=== PATIENT | female | born 1990 | race Hispanic/Latino ===

== ENCOUNTER 2020-05-05 03:59 | Inpatient (IN) | payer BC ==
[2020-05-05 04:44] VITALS: BMI 26.2
[2020-05-05] MEDS ORDERED: hydrALAZINE 20 MG/ML VIAL ONE (05:28)
[2020-05-05] MEDS: Lactated Ringer's 1,000 ML IV SCH (05:30)
[2020-05-05] MEDS ORDERED: Acetaminophen 500 MG TAB PO PRN (06:05)
[2020-05-05] MEDS ORDERED: Misoprostol 200 MCG TAB PR PRN (06:05)
[2020-05-05] MEDS ORDERED: Ibuprofen 800 MG TAB PO PRN (06:05)
[2020-05-05] MEDS ORDERED: Methylergonovine 0.2 MG/ML VIAL IM PRN (06:05)
[2020-05-05] MEDS ORDERED: Promethazine HCl 25 MG/ML VIAL IM PRN ×2 (06:05→11:23)
[2020-05-05] MEDS ORDERED: Butorphanol Tartrate 1 MG/ML VIAL SLOW IVP PRN (06:05)
[2020-05-05] MEDS ORDERED: Ondansetron PF 4 MG/2 ML Vial IVP PRN ×2 (06:05→11:23)
[2020-05-05] MEDS ORDERED: hydrALAZINE 20 MG/ML VIAL SLOW IVP PRN (06:05)
[2020-05-05] MEDS ORDERED: Lidocaine 1% (PF) 30 ML VIAL SC PRN (06:05)
[2020-05-05] MEDS ORDERED: Fentanyl 4 mcg/Bup 0.1% Cadd 100 ML ONE (07:00)
[2020-05-05 07:09] LABS: ALT (SGPT) 14 U/L (8-55); AST (SGOT) 23 U/L (5-34); Albumin 3.6 g/dL (3.5-5.0); Alkaline Phosphatase 118 U/L (40-110); Anion Gap 16 mmol/L (10-20); BUN (Urea Nitrogen) 11 mg/dL (7.0-18.7); Bilirubin, Total 0.3 mg/dL (0.2-1.2); Calc. Creatinine Clearance 143 mL/min (70-130); Calcium 9.1 mg/dL (7.8-10.44); Carbon Dioxide 20 mmol/L (22-29); Chloride 107 mmol/L (98-107); Globulin 2.9 g/dL (2.4-3.5); Glucose 78 mg/dL (70-105); Potassium 4.4 mmol/L (3.5-5.1); Protein, Total 6.5 g/dL (6.0-8.3); Sodium 139 mmol/L (136-145)
[2020-05-05 07:15] LABS: #Eosinphils 0.1 10x3/uL (0.0-0.5); #Monocytes 1.1 10x3/uL (0.0-1.1); #Neutrophils 9.6 10x3/uL (1.5-8.4); %Basophils 0.2 % (0.0-2.0); %Eosinophils 0.4 % (0.0-6.0); %Lymphocytes 14.1 % (18.0-47.0); %Monocytes 8.4 % (0.0-10.0); %Neutrophils 76.4 % (40.0-75.0); Hemoglobin 10.6 g/dL (12.0-15.5); Mean Corpuscular HGB CONC 32.2 g/dL (32.0-36.0); Mean Corpuscular Hemoglobin 26.8 pg (27.0-33.0); Mean Corpuscular Volume 83.3 fl (81.6-98.3); Platelet Count 132 10x3/uL (150-450); RBC Distribution Width 14.5 % (11.5-14.5); Red Blood Cell (RBC) Count 3.95 10x6/uL (3.90-5.03); White Blood Cell (WBC) Count 12.6 10x3/uL (3.5-10.5)
[2020-05-05 07:28] LABS: Syphilis Antibody Nonreactive (Nonreactive); Syphilis Antibody Index 0.04 S/CO (<1.00 Non-Reactive)
[2020-05-05 07:30] LABS: Hep B Surf Ag Non-Reactive S/CO (NonReactive)
[2020-05-05 07:59] LABS: HBSAg Index 0.15 S/CO (0-0.99)
[2020-05-05] MEDS ORDERED: Naloxone HCl 0.4 mg/ml Vial IVP PRN ×2 (11:23)
[2020-05-05] MEDS ORDERED: Lactated Ringer's 500 ML IV PRN (11:23)
[2020-05-05] MEDS ORDERED: diphenhydrAMINE 50 MG/ML VIAL IVP PRN (11:23)
[2020-05-05] MEDS ORDERED: Acetaminophen 325 MG TAB PO PRN (11:23)
[2020-05-05] MEDS ORDERED: Communication Order-Pharmacy FS SCH (11:30)
[2020-05-05] MEDS ORDERED: Fentanyl 4 mcg/Bupivacaine 0.1% Cassette 100 ML EPIDURAL SCH (11:30)
[2020-05-05] MEDS: NS w/ Oxytocin 30 units 500 ML IV PRN ×2 (11:37→12:25)
[2020-05-05] MEDS ORDERED: ePHEDrine Sulfate 50 MG/10 ML VIAL SLOW IVP PRN (12:20)
[2020-05-05] MEDS ORDERED: Bisacodyl 10 MG SUPP PR PRN (15:00)
[2020-05-05] MEDS ORDERED: Preparation H Ointment 28 GM TUBE PR PRN (15:00)
[2020-05-05] MEDS ORDERED: NS / Oxytocin 40 units/1000ml 1,000 ML IV SCH (15:00)
[2020-05-05] MEDS ORDERED: Benzocaine-Menthol 82.5 ML CAN TOP PRN (15:00)
[2020-05-05] MEDS ORDERED: Milk Of Magnesia 30 ML UDCUP PO PRN (15:00)
[2020-05-05] MEDS ORDERED: Lanolin Ointment 7 GM TUBE TOP PRN (15:00)
[2020-05-05] MEDS ORDERED: diphenhydrAMINE 25 MG CAP PO PRN (15:00)
[2020-05-05] MEDS: Ibuprofen 800 MG TAB PO SCH ×2 (17:04→22:53)
[2020-05-05 17:12] LABS: SARS-CoV-2 PCR by NAA Not Detected (NotDetected)
[2020-05-05] MEDS: Docusate Calcium (SURFAK) 240 MG CAP PO SCH (22:54)
[2020-05-06] MEDS: Ibuprofen 800 MG TAB PO SCH ×3 (06:42→22:03)
[2020-05-06] MEDS: Prenatal Vitamin 1 TAB PO SCH (09:29)
[2020-05-06] MEDS: Docusate Calcium (SURFAK) 240 MG CAP PO SCH ×2 (09:29→22:05)
[2020-05-06] MEDS: Ferrous Sulfate 325 MG TAB PO SCH ×2 (09:35→17:33)
[2020-05-06] MEDS ORDERED: Bupivacaine 0.25% HCL 30 ML VIAL ONE (19:18)
[2020-05-07] MEDS: Ibuprofen 800 MG TAB PO SCH (05:46)
[2020-05-07] MEDS: Lactated Ringer's 1,000 ML IV SCH (07:36)
[2020-05-07 08:09] VITALS: BP 118/61; TEMP 98.2
[2020-05-07] MEDS: Ferrous Sulfate 325 MG TAB PO SCH (08:14)
[2020-05-07] MEDS: Docusate Calcium (SURFAK) 240 MG CAP PO SCH (09:14)
[2020-05-07] MEDS: Prenatal Vitamin 1 TAB PO SCH (09:14)
== END 2020-05-07 11:34 | disposition home or self-care (01) | DRG 807 ==
LOC: CSHLD/OP 03:59 → CSHLD 06:18 → CSHPP 18:13
PROVIDERS: ADMIT Obstetrics & Gynecology; ATTEND Obstetrics & Gynecology
PROC: 0KQM0ZZ Repair Perineum Muscle, Open Approach (ICD-10-PCS; principal; 2020-05-05)
PROC: 10E0XZZ Delivery of Products of Conception, External Approach (ICD-10-PCS; 2020-05-05)
PROC: 4A0HXCZ Measurement of Products of Conception, Cardiac Rate, External Approach (ICD-10-PCS; 2020-05-05)
DX: O98.52 Other viral diseases complicating childbirth (principal); Z37.0 Single live birth; O70.1 Second degree perineal laceration during delivery; Z3A.39 39 weeks gestation of pregnancy; B00.9 Herpesviral infection, unspecified; R03.0 Elevated blood-pressure reading, without diagnosis of hypertension
CPT/HCPCS: 36415; 51702; 80053; 86780; 86850; 86900; 86901; 87340; 87635; 99285; J0360; J0595; J2405; J2590; S0020; U0003; U0005

== ENCOUNTER 2025-01-18 22:23 | Inpatient (IN) | payer BC ==
[2025-01-18 22:53] VITALS: BMI 28.6
[2025-01-19] MEDS ORDERED: hydrALAZINE 20 MG/ML VIAL SLOW IVP PRN ×2 (01:00→06:23)
[2025-01-19] MEDS ORDERED: Oxytocin 30 units/NS 500 ML 500 ML IV SCH ×3 (01:00→01:15)
[2025-01-19] MEDS ORDERED: Lidocaine 1% (PF) 30 ML VIAL SC PRN (01:00)
[2025-01-19] MEDS ORDERED: Ondansetron PF 4 MG/2 ML Vial IVP PRN ×2 (01:00→02:00)
[2025-01-19] MEDS ORDERED: Carboprost 250 MCG/ML AMP IM PRN (01:01)
[2025-01-19] MEDS ORDERED: Acetaminophen 500 MG TAB PO PRN (01:01)
[2025-01-19] MEDS ORDERED: Tranexamic Acid 1,000 MG/10 ML VIAL IVP PRN (01:01)
[2025-01-19] MEDS ORDERED: Diphenoxylate HCl/Atropine Tablet PO PRN ×2 (01:01)
[2025-01-19 01:19] LABS: Hematocrit 33.0 % (34.9-44.5); Hemoglobin 11.0 g/dL (12.0-15.5); Mean Corpuscular Hemoglobin 28.9 pg (27.0-33.0); Mean Corpuscular Volume 86.8 fL (81.6-98.3); Red Blood Cell (RBC) Count 3.80 10x6/uL (3.90-5.03); White Blood Cell (WBC) Count 8.24 10x3/uL (3.5-10.5)
[2025-01-19 01:22] LABS: Platelet Count 125 10x3/uL (150-450)
[2025-01-19 01:28] LABS: ALT (SGPT) 15 U/L (Less than 34); AST (SGOT) 25 U/L (11-34); Albumin 2.8 g/dL (3.1-4.5); Alkaline Phosphatase 155 U/L (40-110); Anion Gap 15 mmol/L (10-20); BUN (Urea Nitrogen) 13 mg/dL (7.0-18.7); Bilirubin, Total 0.3 mg/dL (0.3-1.2); Calc. Creatinine Clearance 156 mL/min (70-130); Calcium 9.5 mg/dL (7.8-10.44); Carbon Dioxide 19 mmol/L (22-29); Chloride 108 mmol/L (98-107); Globulin 3.0 g/dL (2.4-3.5); Glucose 68 mg/dL (70-105); Potassium 3.9 mmol/L (3.5-5.1); Sodium 138 mmol/L (136-145)
[2025-01-19] MEDS: fentaNYL/Ropivacaine Epidural 100 ML ONE (01:31)
[2025-01-19 01:48] LABS: Syphilis Antibody Index 0.07 S/CO (<1.00 Non-Reactive)
[2025-01-19 01:49] LABS: Hep B Surf Ag - L&D Non-Reactive S/CO (NonReactive)
[2025-01-19] MEDS: Penicillin G Potassium 5 MILL.UNITS in Sodium Chloride 0.9% 100 ML IVPB SCH (01:56)
[2025-01-19] MEDS ORDERED: fentaNYL 2 mcg/Ropivacaine 0.2% Epidural 100 ML CADD EPIDURAL SCH (02:00)
[2025-01-19] MEDS ORDERED: Acetaminophen 325 MG TAB PO PRN (02:00)
[2025-01-19] MEDS ORDERED: diphenhydrAMINE 50 MG/ML VIAL IVP PRN (02:00)
[2025-01-19] MEDS ORDERED: Communication Order-Pharmacy FS SCH (02:00)
[2025-01-19] MEDS: Calcium Carbonate 500 MG ChewTAB PO PRN (02:27)
[2025-01-19 02:51] LABS: Protein, Urine Random Quant 78.0 mg/dL (1-14)
[2025-01-19] MEDS: Ibuprofen 800 MG TAB PO PRN (05:12)
[2025-01-19] MEDS: Penicillin G 2.5 MILL.units 2.5 MILL.UNITS in Premix 1 BAG IVPB SCH (05:19)
[2025-01-19] MEDS ORDERED: Preparation H Ointment 28 GM TUBE PR PRN (06:23)
[2025-01-19] MEDS ORDERED: Bisacodyl 10 MG SUPP PR PRN (06:23)
[2025-01-19] MEDS ORDERED: Milk Of Magnesia 30 ML UDCUP PO PRN (06:23)
[2025-01-19] MEDS: Erythromycin Base 0.5% Oint 1 GM TUBE ONE (07:18)
[2025-01-19] MEDS: Hepatitis B Vaccine 10 MCG/0.5 ML SYR ONE (07:18)
[2025-01-19] MEDS ORDERED: Bupivacaine 0.25% HCL 30 ML VIAL ONE (08:00)
[2025-01-19] MEDS: Ferrous Sulfate 325 MG TAB PO SCH (08:19)
[2025-01-19] MEDS: Benzocaine-Menthol 82.5 ML CAN TOP PRN (09:09)
[2025-01-19] MEDS: Ibuprofen 800 MG TAB PO SCH (12:56)
[2025-01-20 08:33] VITALS: BP 130/72; TEMP 98
== END 2025-01-20 11:55 | disposition home or self-care (01) | DRG 807 ==
LOC: CSHLD/OP 22:23 → CSHLD 01-19 01:06 → CSHPED 01-19 06:05
PROVIDERS: ADMIT Obstetrics & Gynecology; ATTEND Obstetrics & Gynecology
PROC: 10E0XZZ Delivery of Products of Conception, External Approach (ICD-10-PCS; principal; 2025-01-19)
PROC: 0HQ9XZZ Repair Perineum Skin, External Approach (ICD-10-PCS; 2025-01-19)
PROC: 3E03329 Introduction of Other Anti-infective into Peripheral Vein, Percutaneous Approach (ICD-10-PCS; 2025-01-19)
DX: O98.82 Other maternal infectious and parasitic diseases complicating childbirth (principal); Z37.0 Single live birth; Z3A.39 39 weeks gestation of pregnancy; O70.1 Second degree perineal laceration during delivery
CPT/HCPCS: 51702; 80053; 82570; 84156; 85027; 86780; 86850; 86900; 86901; 87340; 99285; J0665; J2540